=== PATIENT | female | born 1990 ===

== ENCOUNTER 2018-12-27 10:52 | Emergency (ER) | payer OTHER ==
[2018-12-27] MEDS ORDERED: Sodium Chloride 0.9% 1,000 ML IV ONE (11:35)
[2018-12-27 11:48] LABS: HCG,QUALITATIVE URINE POSITIVE (NEGATIVE)
[2018-12-27 11:52] LABS: SQUAMOUS EPITHIAL 14 /hpf (0-5); URINE BACTERIA RARE (<OCC); URINE BILIRUBIN NEGATIVE (NEGATIVE); URINE BLOOD 1+ (NEGATIVE); URINE CLARITY Hazy (Clear); URINE COLOR Yellow (YELLOW); URINE GLUCOSE (UA) NORMAL (Normal); URINE LEUKOCYTE ESTERASE 2+ Leu/uL (Negative); URINE PROTEIN NEGATIVE (NEGATIVE); URINE UROBILINOGEN NORMAL mg/dL (0.2-1.0)
[2018-12-27 12:24] LABS: BASO # 0.1 K/uL (0.0-0.2); BASO % 1.2 % (0.0-2.0); EOS # 0.1 K/uL (0.0-0.7); EOS % 1.2 % (0.0-4.0); HEMOGLOBIN 13.2 g/dL (11.0-16.0); LYMPH # 2.2 K/uL (1.0-4.3); LYMPH % 23.9 % (20.0-40.0); MEAN CELL VOLUME 86.4 fL (81.0-99.0); MEAN CORPUSCULAR HEMOGLOBIN 29.8 pg (27.0-31.0); MEAN CORPUSCULAR HGB CONC 34.4 g/dL (33.0-37.0); MEAN PLATELET VOLUME 8.9 fL (7.2-11.7); MONO # 0.7 K/uL (0.0-0.8); MONO % 7.7 % (0.0-10.0); RBC 4.44 Mil/uL (3.80-5.20); RED CELL DISTRIBUTION WIDTH 13.2 % (11.5-14.5); WHITE BLOOD COUNT 9.1 K/uL (4.8-10.8)
[2018-12-27 12:33] LABS: ALB/GLOB RATIO 1.5 (1.0-2.1); ALBUMIN 4.2 g/dL (3.5-5.0); ALT/SGPT 30 U/L (9-52); AST/SGOT 19 U/L (14-36); BLOOD UREA NITROGEN 10 mg/dL (7-17); CALCIUM 9.2 mg/dl (8.6-10.4); GFR NON-AFRICAN AMERICAN > 60; LIPASE 123 U/L (23-300)
--- NOTE | 2018-12-27 12:41 | C.PDOC ---
History Of Present Illness 28 y/o female presents to the ER complaining of chronic lower abdominal pain which has become worse over the past 3 weeks. Patient states that she has associated nausea, vomiting,diarrhea, fever and chills. Patient reports that she has sick contacts, she has 2 children who have similar symptoms. She notes that she had an IUD for the past 7 years, last month she had the IUD removed by her photographic artist. Patient denies vaginal bleeding, vaginal discharge, dysuria, hematuria. Time Seen by Provider: 12/27/18 11:06 Chief Complaint (Nursing): Abdominal Pain History Per: Patient History/Exam Limitations: no limitations Onset/Duration Of Symptoms: Days Current Symptoms Are (Timing): Still Present Severity: Moderate Quality Of Discomfort: "Pain" Past Medical History Reviewed: Historical Data, Nursing Documentation, Vital Signs Vital Signs: Last Vital Signs Temp 97.9 F 12/27/18 10:54 Pulse 62 12/27/18 10:54 Resp 18 12/27/18 10:54 BP 121/75 12/27/18 10:54 Pulse Ox 98 12/27/18 10:54 - Medical History PMH: No Chronic Diseases Other Surgeries: Hx of surgeries Family History: States: No Known Family Hx - Social History Hx Tobacco Use: No Hx Alcohol Use: No Hx Substance Use: No - Immunization History Hx Tetanus Toxoid Vaccination: No Hx Influenza Vaccination: No Hx Pneumococcal Vaccination: No Review Of Systems Except As Marked, All Systems Reviewed And Found Negative. Constitutional: Positive for: Fever, Chills Gastrointestinal: Positive for: Nausea, Vomiting, Abdominal Pain, Diarrhea Genitourinary: Positive for: Pelvic Pain. Negative for: Dysuria, Hematuria, Vaginal Discharge, Vaginal Bleeding Physical Exam - Physical Exam Appears: Non-toxic, Other (mildly uncomfortable) Skin: Normal Color, Warm, Dry Head: Normacephalic Eye(s): bilateral: Normal Inspection Oral Mucosa: Moist Neck: Supple Cardiovascular: Rhythm Regular Respiratory: Normal Breath Sounds, No Rales, No Rhonchi, No Wheezing Gastrointestinal/Abdominal: Bowel Sounds, Soft, Tenderness (suprapubic and mild RLQ tenderness ), No Guarding, No Rebound Back: Normal Inspection, No CVA Tenderness Neurological/Psych: Oriented x3 ED Course And Treatment - Laboratory Results Result Diagrams: 12/27/18 12:14 12/27/18 12:14 Lab Results: Total Bilirubin 0.3 mg/dL (0.2-1.3) 12/27/18 12:14 AST 19 U/L (14-36) 12/27/18 12:14 ALT 30 U/L (9-52) 12/27/18 12:14 Alkaline Phosphatase 95 U/L (38-126) 12/27/18 12:14 Total Protein 7.0 g/dL (6.3-8.3) 12/27/18 12:14 Albumin 4.2 g/dL (3.5-5.0) 12/27/18 12:14 Globulin 2.8 gm/dL (2.2-3.9) 12/27/18 12:14 Albumin/Globulin Ratio 1.5 (1.0-2.1) 12/27/18 12:14 Lipase 123 U/L (23-300) 12/27/18 12:14 Urine Color Yellow (YELLOW) 12/27/18 11:31 Urine Clarity Hazy (Clear) 12/27/18 11:31 Urine pH 6.0 (5.0-8.0) 12/27/18 11:31 Ur Specific [place] 1.016 (1.003-1.030) 12/27/18 11:31 Urine Protein Negative mg/dL (NEGATIVE) 12/27/18 11:31 Urine Glucose (UA) Normal mg/dL (Normal) 12/27/18 11:31 Urine Ketones Negative mg/dL (NEGATIVE) 12/27/18 11:31 Urine Blood 1+ (NEGATIVE) H 12/27/18 11:31 Urine Nitrate Negative (NEGATIVE) 12/27/18 11:31 Urine Bilirubin Negative (NEGATIVE) 12/27/18 11:31 Urine Urobilinogen Normal mg/dL (0.2-1.0) 12/27/18 11:31 Ur Leukocyte Esterase 2+ Tobias/uL (Negative) H 12/27/18 11:31 Urine WBC (Auto) 4 /hpf (0-5) 12/27/18 11:31 Urine RBC (Auto) 2 /hpf (0-3) 12/27/18 11:31 Ur Squamous Epith Cells 14 /hpf (0-5) H 12/27/18 11:31 Urine Bacteria Rare (<OCC) 12/27/18 11:31 Urine HCG, Qual Positive (NEGATIVE) 12/27/18 11:31 Urine HCG, Qual Positive (NEGATIVE) 12/27/18 11:31 O2 Sat by Pulse Oximetry: 98 (RA) Pulse Ox Interpretation: Normal Progress Note: Blood work, UA, transvaginal US ordered and reviewed. Patient given IV NS bolus, PO tylenol. Upreg (+), toradol not given. Disposition - Disposition Disposition Time: 13:00 Condition: STABLE Forms: [facility] [facility] (T[place]anian) - Clinical Impression Clinical Impression: Pelvic pain affecting - Scribe Statement The provider has reviewed the documentation as recorded by the Scribe [facility] Provider Attestation: All medical record entries made by the Scribe were at my direction and personally dictated by me. I have reviewed the chart and agree that the record accurately reflects my personal performance of the history, physical exam, medic al decision making, and the department course for this patient. I have also personally directed, reviewed, and agree with the discharge instructions and disposition. Physician Patient Turnover Patient Signed Over To: Leslie Sher Handoff Comments: pending ultrasound, beta
--- NOTE | 2018-12-27 12:42 | C.PDOC ---
Time Seen by Provider: 12/27/18 11:06 Chief Complaint (Nursing): Abdominal Pain Past Medical History Vital Signs: Last Vital Signs Temp 97.9 F 12/27/18 10:54 Pulse 62 12/27/18 10:54 Resp 18 12/27/18 10:54 BP 121/75 12/27/18 10:54 Pulse Ox 98 12/27/18 10:54 - Social History Hx Tobacco Use: No Hx Alcohol Use: No Hx Substance Use: No - Immunization History Hx Tetanus Toxoid Vaccination: No Hx Influenza Vaccination: No Hx Pneumococcal Vaccination: No ED Course And Treatment - Laboratory Results Result Diagrams: 12/27/18 12:14 12/27/18 12:14 Lab Results: Total Bilirubin 0.3 mg/dL (0.2-1.3) 12/27/18 12:14 AST 19 U/L (14-36) 12/27/18 12:14 ALT 30 U/L (9-52) 12/27/18 12:14 Alkaline Phosphatase 95 U/L (38-126) 12/27/18 12:14 Total Protein 7.0 g/dL (6.3-8.3) 12/27/18 12:14 Albumin 4.2 g/dL (3.5-5.0) 12/27/18 12:14 Globulin 2.8 gm/dL (2.2-3.9) 12/27/18 12:14 Albumin/Globulin Ratio 1.5 (1.0-2.1) 12/27/18 12:14 Lipase 123 U/L (23-300) 12/27/18 12:14 Urine Color Yellow (YELLOW) 12/27/18 11:31 Urine Clarity Hazy (Clear) 12/27/18 11:31 Urine pH 6.0 (5.0-8.0) 12/27/18 11:31 Ur Specific [place] 1.016 (1.003-1.030) 12/27/18 11:31 Urine Protein Negative mg/dL (NEGATIVE) 12/27/18 11:31 Urine Glucose (UA) Normal mg/dL (Normal) 12/27/18 11:31 Urine Ketones Negative mg/dL (NEGATIVE) 12/27/18 11:31 Urine Blood 1+ (NEGATIVE) H 12/27/18 11:31 Urine Nitrate Negative (NEGATIVE) 12/27/18 11:31 Urine Bilirubin Negative (NEGATIVE) 12/27/18 11:31 Urine Urobilinogen Normal mg/dL (0.2-1.0) 12/27/18 11:31 Ur Leukocyte Esterase 2+ Tobias/uL (Negative) H 12/27/18 11:31 Urine WBC (Auto) 4 /hpf (0-5) 12/27/18 11:31 Urine RBC (Auto) 2 /hpf (0-3) 12/27/18 11:31 Ur Squamous Epith Cells 14 /hpf (0-5) H 12/27/18 11:31 Urine Bacteria Rare (<OCC) 12/27/18 11:31 Urine HCG, Qual Positive (NEGATIVE) 12/27/18 11:31 Urine HCG, Qual Positive (NEGATIVE) 12/27/18 11:31 O2 Sat by Pulse Oximetry: 98 Disposition - Disposition
--- NOTE | 2018-12-27 14:20 | US ---
Date of service: 12/27/2018 PROCEDURE: OB Pelvic Ultrasound HISTORY: PELVIC PAIN, COMPARISON: None available. FINDINGS: UTERUS: Single intrauterine gestation. Yolk sac is visualized. pole is not identified on the current examination. Gestational sac diameter measures 1.18 cm equivalent to 5 weeks and 2 days of gestational age. age (Ultrasound estimated): 5 weeks and 2 days Date of delivery (Ultrasound estimated) : 08/27/2019 Mariel-gestational hemorrhage: None. Uterus measures 10.1 x 6.3 x 6.6 cm. No mass CERVIX: Long and closed. No cervical abnormality seen. RIGHT OVARY: Measures 2.8 x 2.3 x 3.1 cm. No mass. Normal flow. LEFT OVARY: Measures 3.0 x 1.8 x 2.4 cm. No mass. Normal flow. FREE FLUID: None. OTHER FINDINGS: None. IMPRESSION: Single intrauterine gestational sac with mean gestational age of 5 weeks and 2 days. Yolk sac is identified however pole is not visualized on the current examination. Clinical and ultrasound follow-up is recommended to assess viability. The estimated date of delivery by ultrasound is 08/27/2019.
[2018-12-27 14:39] VITALS: BP 108/58; PULSE 84; RESP 16; TEMP 98; O2SAT 99
== END 2018-12-27 14:39 | disposition home or self-care (01) ==
LOC: C.ER 10:52
DX: O20.0 Threatened abortion (principal); O26.891 Other specified pregnancy related conditions, first trimester; R10.2 Pelvic and perineal pain; Z3A.01 Less than 8 weeks gestation of pregnancy
CPT/HCPCS: 76805; 76817; 80053; 81001; 83690; 84702; 84703; 85025; 96360; 99284; J7030